=== PATIENT | male | born 1945 | race Caucasian/White ===

== ENCOUNTER 2016-04-22 14:16 | Inpatient (IN) | payer MEDICARE, OTHER ==
[~2016-04-22] VITALS: Ht 167.6 cm; Wt 51.7 kg
[2016-04-22] MEDS ORDERED: ZOLP12.542 PO (15:58)
[2016-04-22 16:24] LABS: KETONES,URINE >=160 (NEGATIVE); LEUKOCYTE ESTERASE ,URINE Negative (NEGATIVE)
[2016-04-22 16:25] LABS: ADD UA MICROSCOPIC YES; PH,URINE >9.0 (5.0-8.0)
[2016-04-22 16:25] LABS: BASOPHILS # (AUTO) 0.1 /CMM (0.0-0.2); BASOPHILS % (AUTO) 1.7 % (0.0-2.0); DIFF TOTAL % 100 %; EOSINOPHILS % (AUTO) 0.3 % (0.0-6.0); HEMATOCRIT 47 % (39-51); HEMOGLOBIN 15.7 g/dL (13.5-17.5); LYMPHOCYTES # (AUTO) 2.2 /CMM (0.8-4.8); LYMPHOCYTES % (AUTO) 44.2 % (20.0-44.0); MEAN CORPUSCULAR HEMOGLOBIN 32 PG (26.0-33.0); MEAN CORPUSCULAR HGB CONC 34 g/dl (31.0-36.0); MEAN CORPUSCULAR VOLUME 95 fL (80-96); MONOCYTES # (AUTO) 0.4 /CMM (0.1-1.30); MONOCYTES % (AUTO) 7.1 % (2.0-12.0); NEUTROPHILS # (AUTO) 2.3 /CMM (1.8-8.9); NEUTROPHILS % (AUTO) 46.7 % (43.0-81.0); PLATELET COUNT (AUTO) 164 /CMM (150-450); RED BLOOD CELL COUNT(AUTO) 4.91 MIL/uL (4.5-6.0)
[2016-04-22 16:30] LABS: CANNABINOID, URINE NEGATIVE (NEGATIVE); PHENCYCLIDINE SCREEN,URINE NEGATIVE (NEGATIVE)
[2016-04-22 16:36] LABS: ANION GAP 18 (5-14); CALCIUM, SERUM 10.1 mg/dL (8.5-10.1); CARBON DIOXIDE 23 mmol/L (21-32); CHLORIDE 105 mmol/L (98-107); CREATININE 1.1 mg/dL (0.6-1.3); GLUCOSE 91 mg/dL (74-106); POTASSIUM 4.4 mmol/L (3.5-5.1); SODIUM SERUM 141 mmol/L (136-145); UREA NITROGEN, BLOOD 23 mg/dL (7-18)
[2016-04-22 16:42] LABS: ADD URINE CULTURE NO
[2016-04-22 16:49] LABS: ACETAMINOPHEN 0 ug/ml (10-30); ALANINE AMINOTRANSFERASE 21 U/L (12-78); ALBUMIN 3.9 g/dL (3.4-5.0); ASPARTATE AMINOTRANSFERASE 22 U/L (15-37); BILIRUBIN,DIRECT 0.2 mg/dL (0.0-0.2); BILIRUBIN,TOTAL 0.9 mg/dL (0.2-1.0); INDIRECT BILIRUBIN 0.7 mg/dL (0.0-1.1); SALICYLATE 0.9 mg/dL (2.8-20.0); TOTAL PROTEIN, SERUM 7.9 g/dL (6.4-8.2)
[2016-04-22] MEDS: TEMAZEPAM 7.5 MG CAPSULE PO PRN (21:47)
[2016-04-22] MEDS: ACETAMINOPHEN 325 MG TABLET PO PRN (22:34)
[2016-04-22 23:33] VITALS: BP 134/80
[2016-04-23 08:07] LABS: ALBUMIN 3.4 g/dL (3.4-5.0); BILIRUBIN,TOTAL 0.6 mg/dL (0.2-1.0); CALCIUM, SERUM 8.8 mg/dL (8.5-10.1); POTASSIUM 4.2 mmol/L (3.5-5.1); TOTAL PROTEIN, SERUM 6.8 g/dL (6.4-8.2)
[2016-04-23] MEDS: MAG HYDROX/AL HYDROX/SIMETH 30 ML UDC PO PRN (08:14)
[2016-04-23] MEDS: LORAZEPAM 0.5 MG TABLET PO PRN (08:14)
[2016-04-23 08:25] VITALS: BP 172/89
[2016-04-23] MEDS: clonazePAM 0.5 MG TABLET PO SCH (11:07)
[2016-04-23] MEDS: SERTRALINE HCL 25 MG TABLET PO SCH (12:14)
[2016-04-23] MEDS: MAGNESIUM HYDROXIDE 30 ML UDC PO PRN (12:14)
[2016-04-23 16:00] VITALS: BP 136/77
[2016-04-23] MEDS: BOOST PLUS FOOD-CHOCLATE 237 ML BOX PO SCH (16:26)
[2016-04-23] MEDS: BISACODYL SUPP (10 MG) 10 MG/SUPP.RECT SUPP.RECT RC PRN (18:28)
[2016-04-23 20:40] VITALS: BP 153/84
[2016-04-23] MEDS: TEMAZEPAM 7.5 MG CAPSULE PO PRN (21:32)
[2016-04-23] MEDS: ACETAMINOPHEN 325 MG TABLET PO PRN (21:32)
[2016-04-24] MEDS: MAG HYDROX/AL HYDROX/SIMETH 30 ML UDC PO PRN (03:08)
[2016-04-24] MEDS: SERTRALINE HCL 25 MG TABLET PO SCH (08:02)
[2016-04-24] MEDS: clonazePAM 0.5 MG TABLET PO SCH (08:02)
[2016-04-24] MEDS: BOOST PLUS FOOD-CHOCLATE 237 ML BOX PO SCH ×2 (08:03→16:58)
[2016-04-24 08:22] VITALS: BP 149/86
[2016-04-24 16:23] VITALS: BP 140/80
[2016-04-24 19:56] VITALS: BP 135/70
[2016-04-25] MEDS: TEMAZEPAM 7.5 MG CAPSULE PO PRN ×2 (02:02→21:58)
[2016-04-25 08:00] VITALS: BP 138/89
[2016-04-25] MEDS: BOOST PLUS FOOD-CHOCLATE 237 ML BOX PO SCH ×2 (08:43→16:30)
[2016-04-25] MEDS: clonazePAM 0.5 MG TABLET PO SCH (08:47)
[2016-04-25] MEDS: SERTRALINE HCL 25 MG TABLET PO SCH (08:48)
[2016-04-25] MEDS: BISACODYL SUPP (10 MG) 10 MG/SUPP.RECT SUPP.RECT RC PRN (14:05)
[2016-04-25 16:00] VITALS: BP 144/91
[2016-04-25 20:00] VITALS: BP 147/90
[2016-04-26 08:00] VITALS: BP 139/80
[2016-04-26 08:27] LABS: CHOLESTEROL 136 mg/dL (<200); HDL CHOLESTEROL 34 mg/dL (40-60); LDL 83 mg/dL (0-99); TRIGLYCERIDES 78 mg/dL (30-150)
[2016-04-26] MEDS: SERTRALINE HCL 25 MG TABLET PO SCH (08:32)
[2016-04-26] MEDS: clonazePAM 0.5 MG TABLET PO SCH ×2 (08:32→17:09)
[2016-04-26] MEDS: BOOST PLUS FOOD-CHOCLATE 237 ML BOX PO SCH ×2 (08:34→17:14)
[2016-04-26 16:00] VITALS: BP 133/70
[2016-04-26 20:00] VITALS: BP 132/76
[2016-04-27 08:00] VITALS: BP 133/69
[2016-04-27] MEDS: clonazePAM 0.5 MG TABLET PO SCH (08:34)
[2016-04-27] MEDS: SERTRALINE HCL 25 MG TABLET PO SCH (08:35)
[2016-04-27] MEDS: BOOST PLUS FOOD-CHOCLATE 237 ML BOX PO SCH ×2 (09:35→17:23)
[2016-04-27 15:46] VITALS: BP 133/80
[2016-04-27 19:45] VITALS: BP 122/81
[2016-04-27] MEDS: risperiDONE 0.25 MG TABLET PO SCH (21:10)
[2016-04-27] MEDS: TEMAZEPAM 7.5 MG CAPSULE PO PRN (23:41)
[2016-04-28 08:00] VITALS: BP 124/70
[2016-04-28] MEDS: SERTRALINE HCL 25 MG TABLET PO SCH (08:42)
[2016-04-28] MEDS: clonazePAM 0.5 MG TABLET PO SCH (08:42)
[2016-04-28] MEDS: BOOST PLUS FOOD-CHOCLATE 237 ML BOX PO SCH ×2 (08:44→16:22)
[2016-04-28] MEDS: BISACODYL SUPP (10 MG) 10 MG/SUPP.RECT SUPP.RECT RC PRN (12:01)
[2016-04-28 15:52] VITALS: BP 112/64
[2016-04-28 19:47] VITALS: BP 141/90
[2016-04-28] MEDS: risperiDONE 0.25 MG TABLET PO SCH (21:16)
[2016-04-28] MEDS: TEMAZEPAM 7.5 MG CAPSULE PO PRN (21:17)
[2016-04-28] MEDS: MAGNESIUM HYDROXIDE 30 ML UDC PO PRN (21:18)
[2016-04-29] MEDS ORDERED: NA PHOS,M-B/NA PHOS,DI-BA 1 EA ENEMA RC ONE (06:00)
[2016-04-29 08:00] VITALS: BP 133/68
[2016-04-29] MEDS: clonazePAM 0.5 MG TABLET PO SCH (08:17)
[2016-04-29] MEDS: BOOST PLUS FOOD-CHOCLATE 237 ML BOX PO SCH ×2 (08:17→16:47)
[2016-04-29] MEDS: SERTRALINE HCL 25 MG TABLET PO SCH (08:17)
[2016-04-29 16:16] VITALS: BP 120/55
[2016-04-29 20:03] VITALS: BP 127/80
[2016-04-29] MEDS: risperiDONE 0.25 MG TABLET PO SCH (21:21)
[2016-04-29] MEDS: ACETAMINOPHEN 325 MG TABLET PO PRN (21:39)
[2016-04-30 08:00] VITALS: BP 107/63
[2016-04-30] MEDS: BOOST PLUS FOOD-CHOCLATE 237 ML BOX PO SCH ×2 (08:21→16:09)
[2016-04-30] MEDS: clonazePAM 0.5 MG TABLET PO SCH (08:22)
[2016-04-30] MEDS ORDERED: SERTRALINE HCL 50 MG TABLET PO SCH (09:00)
[2016-04-30] MEDS: ACETAMINOPHEN 325 MG TABLET PO PRN ×2 (15:46→21:49)
[2016-04-30] MEDS: BISACODYL SUPP (10 MG) 10 MG/SUPP.RECT SUPP.RECT RC PRN (15:46)
[2016-04-30 16:00] VITALS: BP 122/73
[2016-04-30] MEDS: LORAZEPAM 0.5 MG TABLET PO PRN (17:25)
[2016-04-30] MEDS ORDERED: NA PHOS,M-B/NA PHOS,DI-BA 1 EA ENEMA RC PRN (18:30)
[2016-04-30 19:41] VITALS: BP 139/78
[2016-04-30] MEDS: risperiDONE 0.25 MG TABLET PO SCH (21:10)
[2016-04-30] MEDS: TEMAZEPAM 7.5 MG CAPSULE PO PRN (23:45)
[2016-05-01 07:27] LABS: BASOPHILS % (AUTO) 0.3 % (0.0-2.0); DIFF TOTAL % 100 %; EOSINOPHILS % (AUTO) 0.8 % (0.0-6.0); HEMATOCRIT 37 % (39-51); HEMOGLOBIN 12.4 g/dL (13.5-17.5); LYMPHOCYTES # (AUTO) 2.3 /CMM (0.8-4.8); LYMPHOCYTES % (AUTO) 55.3 % (20.0-44.0); MEAN CORPUSCULAR HEMOGLOBIN 33 PG (26.0-33.0); MEAN CORPUSCULAR HGB CONC 34 g/dl (31.0-36.0); MEAN CORPUSCULAR VOLUME 96 fL (80-96); MONOCYTES # (AUTO) 0.3 /CMM (0.1-1.30); MONOCYTES % (AUTO) 6.3 % (2.0-12.0); NEUTROPHILS # (AUTO) 1.6 /CMM (1.8-8.9); NEUTROPHILS % (AUTO) 37.3 % (43.0-81.0); PLATELET COUNT (AUTO) 148 /CMM (150-450); RED BLOOD CELL COUNT(AUTO) 3.82 MIL/uL (4.5-6.0); WHITE BLOOD COUNT (AUTO) 4.2 K/uL (4.3-11.0)
[2016-05-01 08:00] VITALS: BP 113/64
[2016-05-01] MEDS: BOOST PLUS FOOD-CHOCLATE 237 ML BOX PO SCH (08:01)
[2016-05-01] MEDS ORDERED: clonazePAM 0.5 MG TABLET PO SCH (09:00)
[2016-05-01] MEDS ORDERED: SERTRALINE HCL 50 MG TABLET PO SCH (09:00)
== END 2016-05-01 13:15 | DRG 885 ==
LOC: ER 14:19 → GPS 17:37
PROVIDERS: ADMIT Psychiatry & Neurology Psychosomatic Medicine; ATTEND Internal Medicine
DX: F33.2 Major depressive disorder, recurrent severe without psychotic features (principal); N17.0 Acute kidney failure with tubular necrosis; F41.0 Panic disorder [episodic paroxysmal anxiety]; K21.9 Gastro-esophageal reflux disease without esophagitis; Z85.46 Personal history of malignant neoplasm of prostate; I25.10 Atherosclerotic heart disease of native coronary artery without angina pectoris; Z95.1 Presence of aortocoronary bypass graft; I10 Essential (primary) hypertension; I25.2 Old myocardial infarction; K59.00 Constipation, unspecified; Z90.79 Acquired absence of other genital organ(s); F41.9 Anxiety disorder, unspecified
CPT/HCPCS: 36415; 74000-TC; 80048-TC; 80053-TC; 80061-TC; 80076-TC; 80305; 81000-TC; 85025-TC; 87081-TC; A4606; G6038-TC; G6039-TC; G6040-TC; Z7610